=== PATIENT | female | born 1945 | race Caucasian/White ===

== ENCOUNTER 2018-03-11 19:24 | Emergency (ER) | payer MEDICARE, MEDICAID ==
[~2018-03-11 19:24] MED LIST: AND5P TD; CHLORELLA PO; ESTR25PO PO; FLUT16SP26 BOTHNARES; HAWT150C PO; HGH PO; HYAL1CAP PO; IBUP-1985 PO; LACT1CAP65 PO; LEVO137T2 PO; MEDR5TAB4 PO; MULT-1074 PO; OREG1500 PO; UBID10CA4 PO; WALKERFR; ZINC50TA4 PO; [UNRECOGNIZED DRUG - OTHER] PO
== END 2018-03-11 20:12 | disposition left against medical advice (07) ==
LOC: ER 19:24
DX: R09.81 Nasal congestion (principal); Z53.21 Procedure and treatment not carried out due to patient leaving prior to being seen by health care provider

== ENCOUNTER 2019-07-05 19:38 | Emergency (ER) | payer MEDICARE, MEDICAID ==
[~2019-07-05] VITALS: Ht 149.9 cm; Wt 84.1 kg
[~2019-07-05 19:38] MED LIST changes: +ALBU18HF2 INH; -AND5P TD; -CHLORELLA PO; -ESTR25PO PO; -FLUT16SP26 BOTHNARES; -HAWT150C PO; -HYAL1CAP PO; -IBUP-1985 PO; -LACT1CAP65 PO; -MULT-1074 PO; -OREG1500 PO; -UBID10CA4 PO; +VITA0.4T2 PO; -WALKERFR; -ZINC50TA4 PO
[2019-07-05 21:07] LABS: BASOPHILS # (AUTO) 0.1 X10'3 (0-0.2); BASOPHILS % (AUTO) 1.1 % (0-1); EOSINOPHILS # (AUTO) 0.3 X10'3 (0-0.9); EOSINOPHILS % (AUTO) 3.8 % (0-6); HEMATOCRIT 38.5 % (35.0-45.0); HEMOGLOBIN 13.5 g/dl (12.0-16.0); LYMPHOCYTES # (AUTO) 3.4 X10'3 (1.1-4.8); MEAN CORPUSCULAR HEMOGLOBIN 32.2 PG (27.0-31.0); MEAN CORPUSCULAR VOLUME 92.2 FL (78-98); MEAN PLATELET VOLUME 7.4 FL (7.4-10.4); MONOCYTES # (AUTO) 0.8 X10'3 (0-0.9); MONOCYTES % (AUTO) 8.5 % (2-12); NEUTROPHILS # (AUTO) 4.4 X10'3 (1.8-7.7); NEUTROPHILS % (AUTO) 48.6 % (42-75); PLATELET COUNT 287 X10'3 (140-440); RED BLOOD COUNT 4.17 X10'6 (4.20-5.60); WHITE BLOOD COUNT 8.9 X10'3 (4.5-11.0)
[2019-07-05 21:21] LABS: ALANINE AMINOTRANSFERASE 21 U/L (12-78); ALBUMIN 3.8 G/DL (3.4-5.0); ALBUMIN/GLOBULIN RATIO 1.2 (1.1-1.5); ALKALINE PHOSPHATASE 67 IU/L (46-116); ANION GAP 9 (8-16); ASPARTATE AMINO TRANSFERASE 17 U/L (10-37); BILIRUBIN,TOTAL 0.4 MG/DL (0.1-1.0); BLOOD UREA NITROGEN 15 MG/DL (7-18); BUN/CREATININE RATIO 18.5 (6.6-38.0); CALCIUM 9.1 MG/DL (8.5-10.1); CHLORIDE 106 MMOL/L (99-107); CREATININE 0.81 MG/DL (0.40-0.90); GLUCOSE 103 MG/DL (70-104); MAGNESIUM 1.8 MG/DL (1.5-2.4); POTASSIUM 3.7 MMOL/L (3.5-5.1); SODIUM 141 MMOL/L (135-145); TOTAL CARBON DIOXIDE 25.8 MMOL/L (24-32); eGFR 69 ML/MIN
[2019-07-05 21:53] VITALS: BP 146/73
[2019-07-05] MEDS ORDERED: ketorolac trometh inj. 60 MG/2 ML VIAL IM ONE (21:55)
== END 2019-07-05 22:00 | disposition home or self-care (01) ==
LOC: ER 19:39
DX: M79.671 Pain in right foot (principal); R51 Headache; J45.909 Unspecified asthma, uncomplicated; G89.29 Other chronic pain; Z56.0 Unemployment, unspecified; Z86.73 Personal history of transient ischemic attack (TIA), and cerebral infarction without residual deficits; Z90.49 Acquired absence of other specified parts of digestive tract; Z98.890 Other specified postprocedural states; Z88.5 Allergy status to narcotic agent; Z88.6 Allergy status to analgesic agent; Z79.899 Other long term (current) drug therapy
CPT/HCPCS: 36415; 70450; 71045; 73630; 80053; 83735; 84484; 85025; 93005; 96372; 99284; J1885

== ENCOUNTER 2019-11-07 16:06 | Outpatient (CLI) | payer MEDICARE, MEDICAID ==
[~2019-11-07] VITALS: Ht 146.1 cm; Wt 84.8 kg
[2019-11-07] MEDS ORDERED: albuterol 2.5 MG/3 ML nebule NEB ONE (16:40)
== END 2019-11-07 23:59 | disposition home or self-care (01) ==
LOC: RT 16:06
PROVIDERS: ATTEND Internal Medicine
DX: J44.9 Chronic obstructive pulmonary disease, unspecified (principal); M54.5 Low back pain
CPT/HCPCS: 94060; 94760

== ENCOUNTER 2020-09-02 12:56 | Emergency (ER) | payer MEDICARE, MEDICAID ==
[~2020-09-02] VITALS: Ht 162.6 cm; Wt 86.4 kg
[2020-09-02] MEDS ORDERED: HYDROcodone/acetaminophen 5mg/325mg tablet PO ONE (14:15)
[2020-09-02] MEDS ORDERED: ketorolac tromethamine 15mg/ml inj. IM ONE (14:15)
[2020-09-02] MEDS ORDERED: TRAM50TA2 PO (15:54)
[2020-09-02] MEDS ORDERED: ACET-1025 PO (15:54)
[2020-09-02] MEDS ORDERED: ONDA4TAB6 PO (16:19)
[2020-09-02] MEDS ORDERED: HYDR-3965 PO (16:19)
[2020-09-02 17:39] VITALS: BP 142/66
== END 2020-09-02 17:30 | disposition home or self-care (01) ==
LOC: ER 12:57
DX: S22.31XA Fracture of one rib, right side, initial encounter for closed fracture (principal); M25.511 Pain in right shoulder; R07.81 Pleurodynia; R07.89 Other chest pain; J45.909 Unspecified asthma, uncomplicated; G89.29 Other chronic pain; F32.9 Major depressive disorder, single episode, unspecified; Z86.73 Personal history of transient ischemic attack (TIA), and cerebral infarction without residual deficits; Z90.89 Acquired absence of other organs; Z90.49 Acquired absence of other specified parts of digestive tract; Z60.2 Problems related to living alone; Z88.5 Allergy status to narcotic agent; Z88.6 Allergy status to analgesic agent; Z79.899 Other long term (current) drug therapy; X58.XXXA Exposure to other specified factors, initial encounter; Y93.9 Activity, unspecified; Y92.89 Other specified places as the place of occurrence of the external cause; Y99.8 Other external cause status
CPT/HCPCS: 71045; 71250; 72192; 73030; 74150; 96372; 99284; J1885

== ENCOUNTER 2020-09-05 15:59 | Emergency (ER) | payer MEDICARE, MEDICAID ==
[~2020-09-05] VITALS: Ht 147.3 cm; Wt 85.9 kg
[~2020-09-05 15:59] MED LIST changes: +HYDR-3965 PO; +ONDA4TAB6 PO
[2020-09-05 16:03] VITALS: BP 155/59
[2020-09-05] MEDS ORDERED: ketorolac tromethamine 15mg/ml inj. IM ONE (16:55)
[2020-09-05] MEDS ORDERED: HYDR-3973 PO (19:29)
[2020-09-05 19:49] LABS: CLARITY,URINE CLEAR (Clear); COLOR,URINE YELLOW (Yellow); GLUCOSE, URINE NEGATIVE (Neg); KETONES,URINE NEGATIVE (Neg); LEUKOCYTE ESTERASE ,URINE SMALL (Neg); NITRITES, URINE NEGATIVE (Neg); OCCULT BLOOD,URINE NEGATIVE (Neg); PH,URINE 5.5 (4.8-8.0); PROTEIN,URINE NEGATIVE (Neg)
[2020-09-05 19:57] LABS: UA COLLECTION TYPE NON-SPECIFIED
[2020-09-05 19:58] LABS: BACTERIA,URINE NONE SEEN /HPF (Neg); RBC,URINE NONE SEEN /HPF (0-2); SQUAMOUS EPITHELIAL CELL,UR FEW /LPF (FEW)
== END 2020-09-05 19:39 | disposition home or self-care (01) ==
LOC: ER 16:00
DX: S22.41XD Multiple fractures of ribs, right side, subsequent encounter for fracture with routine healing (principal); R32 Unspecified urinary incontinence; J45.909 Unspecified asthma, uncomplicated; R07.81 Pleurodynia; G89.29 Other chronic pain; F32.9 Major depressive disorder, single episode, unspecified; Z86.73 Personal history of transient ischemic attack (TIA), and cerebral infarction without residual deficits; Z90.49 Acquired absence of other specified parts of digestive tract; Z95.0 Presence of cardiac pacemaker; Z60.2 Problems related to living alone; Z56.0 Unemployment, unspecified; Z90.89 Acquired absence of other organs; Z98.890 Other specified postprocedural states; Z91.041 Radiographic dye allergy status; Z88.5 Allergy status to narcotic agent; Z88.6 Allergy status to analgesic agent; Z79.899 Other long term (current) drug therapy; W18.39XD Other fall on same level, subsequent encounter
CPT/HCPCS: 81001; 87088; 96372; 99284; J1885

== ENCOUNTER 2021-10-26 16:10 | Emergency (ER) | payer BC, MEDICAID ==
[~2021-10-26] VITALS: Ht 149.9 cm; Wt 86.4 kg
[~2021-10-26 16:10] MED LIST changes: -HYDR-3965 PO
[2021-10-26 16:25] VITALS: BP 158/85
[2021-10-26] MEDS ORDERED: ketorolac tromethamine 15mg/ml inj. IM ONE (18:15)
[2021-10-26] MEDS ORDERED: HYDROcodone/acetaminophen 5mg/325mg tablet PO ONE (18:30)
[2021-10-26] MEDS ORDERED: HYDR-3965 PO (18:57)
== END 2021-10-26 19:47 | disposition home or self-care (01) ==
LOC: ER 16:10
DX: S80.212A Abrasion, left knee, initial encounter (principal); M25.562 Pain in left knee; I48.91 Unspecified atrial fibrillation; J45.909 Unspecified asthma, uncomplicated; G89.29 Other chronic pain; F32.A Depression, unspecified; Z86.73 Personal history of transient ischemic attack (TIA), and cerebral infarction without residual deficits; Z90.89 Acquired absence of other organs; Z90.49 Acquired absence of other specified parts of digestive tract; Z95.0 Presence of cardiac pacemaker; Z98.890 Other specified postprocedural states; Z60.2 Problems related to living alone; Z56.0 Unemployment, unspecified; Z88.5 Allergy status to narcotic agent; Z88.8 Allergy status to other drugs, medicaments and biological substances; Z88.6 Allergy status to analgesic agent; Z79.899 Other long term (current) drug therapy; W18.09XA Striking against other object with subsequent fall, initial encounter; Y93.89 Activity, other specified; Y92.89 Other specified places as the place of occurrence of the external cause; Y99.8 Other external cause status
CPT/HCPCS: 29505; 73564; 96372; 99284; J1885

== ENCOUNTER 2023-10-08 15:36 | Emergency (ER) | payer BC, MEDICAID ==
[~2023-10-08] VITALS: Ht 147.3 cm; Wt 105.0 kg
[2023-10-08 16:08] VITALS: BP 149/87; PULSE 95; O2SAT 98
[2023-10-08] MEDS ORDERED: HYDR-3965 PO (17:31)
[2023-10-08 18:35] VITALS: RESP 16
[2023-10-08] MEDS: HYDROcodone/acetaminophen 5mg/325mg tablet PO ONE (18:35)
[2023-10-08 18:49] VITALS: TEMP 97
== END 2023-10-08 18:51 | disposition home or self-care (01) ==
LOC: ER 15:36
DX: S52.122A Displaced fracture of head of left radius, initial encounter for closed fracture (principal); S52.121A Displaced fracture of head of right radius, initial encounter for closed fracture; S05.12XA Contusion of eyeball and orbital tissues, left eye, initial encounter; S05.11XA Contusion of eyeball and orbital tissues, right eye, initial encounter; S02.2XXA Fracture of nasal bones, initial encounter for closed fracture; Z88.8 Allergy status to other drugs, medicaments and biological substances; Z91.041 Radiographic dye allergy status; Z86.73 Personal history of transient ischemic attack (TIA), and cerebral infarction without residual deficits; I48.91 Unspecified atrial fibrillation; J45.909 Unspecified asthma, uncomplicated; G89.29 Other chronic pain; M54.9 Dorsalgia, unspecified; F32.9 Major depressive disorder, single episode, unspecified; Z90.49 Acquired absence of other specified parts of digestive tract; Z95.0 Presence of cardiac pacemaker; W19.XXXA Unspecified fall, initial encounter; Y93.89 Activity, other specified; Y92.89 Other specified places as the place of occurrence of the external cause; Y99.8 Other external cause status
CPT/HCPCS: 70450; 73080; 99284; A4565

== ENCOUNTER 2024-10-03 13:58 | Outpatient (CLI) | payer MEDICARE, MEDICAID | END 2024-10-03 23:59 | disposition home or self-care (01) | LOC: RAD 13:58 | DX: M75.101 Unspecified rotator cuff tear or rupture of right shoulder, not specified as traumatic (principal) | CPT/HCPCS: 73200 ==